=== PATIENT | male | born 2005 | race Two or more races ===

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

== ENCOUNTER 2024-11-01 20:27 | Emergency (ER) | payer OTHER ==
[2024-11-01] MEDS ORDERED: Lidocaine 1% w/Epinephrine 1:100K 20 ML VIAL ONE (21:23)
== END 2024-11-01 22:50 | disposition home or self-care (01) ==
LOC: ERS 20:27
DX: S02.2XXA Fracture of nasal bones, initial encounter for closed fracture (principal); S01.81XA Laceration without foreign body of other part of head, initial encounter; V89.9XXA Person injured in unspecified vehicle accident, initial encounter
CPT/HCPCS: 12011; 70450